=== PATIENT | female | born 1960 | race Caucasian/White ===

== ENCOUNTER → 2016-11-09 | Outpatient (CLI) | payer BC ==
[~2016-11-09] MED LIST: ASPI325T45 PO; DIPH25CA65 PO; MEFL250T2 PO; SERT-234 PO
== END | disposition home or self-care (01) ==
LOC: C.RDSM 13:54
PROVIDERS: ATTEND Physical Medicine & Rehabilitation Sports Medicine
DX: M25.551 Pain in right hip (principal)